=== PATIENT | male | born 1965 | race Caucasian/White ===

== ENCOUNTER 2017-05-05 16:09 | Inpatient (IN) | payer OTHER ==
[~2017-05-05] VITALS: Ht 172.7 cm; Wt 91.2 kg
[~2017-05-05 16:09] MED LIST: ADVAIR; ALBUTEROL; BACTRIM1 TAB; CETIRIZINE HYDR10 MG PO; COZ25 PO; FOS10 PO; HYDROCHLOROTHIA25 MG PO; LEVAQUIN750 MG PO; LOSARTAN POTASS25 M1 PO; MEDDP PO; METFORMIN HCL500 MG PO; MONTELUKAST SOD10 M1 PO; PRE20 PO; PRILOSEC20 MG PO; PROAIR HFA0.09 MG/A1 INH; SALBUTAMOL; SEREVENT D0.046 MG/1 IH; ZYR10 PO; [UNRECOGNIZED DRUG - OTHER]
[2017-05-06 03:10] LABS: BASOPHIL % 1.9 % (0-2); PLATELET COUNT 270 x10^3mcL (130-400); RED CELL DISTRIBUTION WIDTH 14.2 % (11.5-14.5)
[2017-05-06 03:13] LABS: CALCIUM 9.1 mg/dL (8.5-10.1); CHLORIDE SERUM 99 mmol/L (98-107); GFR1 > 60 mL/min; GLUCOSE SERUM 295 mg/dL (74-106); POTASSIUM SERUM 3.8 mmol/L (3.5-5.1); SODIUM SERUM 137 mmol/L (136-145)
[2017-05-06 03:18] LABS: ALBUMIN 3.9 g/dL (3.4-5.0); ALKALINE PHOSPHATASE 69 U/L (46-116); ALT/SGPT 32 U/L (16-63); AST/SGOT 4 U/L (15-37); BILIRUBIN TOTAL 0.54 mg/dL (0.20-1.00); TOTAL PROTEIN, SERUM 7.3 g/dL (6.4-8.2)
[2017-05-06] MEDS ORDERED: NITROGLYCERIN0.4 MG SL (03:38)
[2017-05-06] MEDS ORDERED: METFORMIN HCL1000 MG PO (03:39)
[2017-05-06] MEDS ORDERED: PREDNISONE20 MG PO (03:39)
[2017-05-06] MEDS ORDERED: TESSALON PERLE100 MG PO (03:40)
[2017-05-06] MEDS ORDERED: ATORVASTATIN CA40 M1 PO (03:40)
[2017-05-06] MEDS ORDERED: ASPIR LOW81 MG PO (03:40)
[2017-05-06] MEDS ORDERED: GLIPIZIDE10 M2 PO (03:41)
[2017-05-06] MEDS ORDERED: RANITIDINE HYD300 MG PO (03:42)
[2017-05-06 04:27] LABS: microscopic required? NO
[2017-05-06 04:49] LABS: UA SPECIFIC GRAVITY 1.025 (1.005-1.035); urine erythrocyte NEGATIVE (NEGATIVE)
[2017-05-06 04:58] LABS: AMPHETAMINE QUAL UR NONE DETECTED (NEG <=1000)
[2017-05-06 05:20] VITALS: BP 105/68
[2017-05-06 05:22] VITALS: Ht 172.7 cm; Wt 91.2 kg
[2017-05-06 06:12] VITALS: BP 105/68
[2017-05-06 07:10] LABS: T3 TOTAL 1.16 ng/mL
[2017-05-06 07:12] LABS: MAGNESIUM 2.1 mg/dL (1.8-2.4); PHOSPHOROUS 3.4 mg/dL (2.5-4.9)
[2017-05-06 07:18] LABS: FREE T4 1.05 ng/dL (0.76-1.46); FREE THYROXINE INDEX 2.7 ug/dL (1.4-4.5); T4(THYROXINE) 7.6 ug/dL (4.7-13.3)
[2017-05-06 07:22] LABS: CHOLESTEROL/HDL RATIO 4.5
[2017-05-06 09:45] VITALS: BP 101/54
[2017-05-06 12:47] VITALS: BP 123/62
[2017-05-06 17:38] VITALS: BP 108/69
[2017-05-06 20:52] VITALS: BP 117/62
[2017-05-07 05:46] VITALS: BP 120/75
[2017-05-07 07:11] LABS: BASOPHIL % 0.3 % (0-2); PLATELET COUNT 230 x10^3mcL (130-400); RED CELL DISTRIBUTION WIDTH 14.2 % (11.5-14.5)
[2017-05-07 08:39] LABS: CALCIUM 7.9 mg/dL (8.5-10.1); CARBON DIOXIDE 21.2 mmol/L (21-32); CHLORIDE SERUM 108 mmol/L (98-107); CREATININE SERUM 0.6 mg/dL (0.7-1.3); GFR1 > 60 mL/min; GLUCOSE SERUM 177 mg/dL (74-106); MAGNESIUM 1.9 mg/dL (1.8-2.4); PHOSPHOROUS 2.6 mg/dL (2.5-4.9); POTASSIUM SERUM 3.6 mmol/L (3.5-5.1); SODIUM SERUM 139 mmol/L (136-145)
[2017-05-07 09:19] VITALS: BP 95/56
[2017-05-07 12:27] VITALS: BP 108/63
[2017-05-07 16:43] VITALS: BP 116/75
[2017-05-07 19:40] VITALS: BP 107/54
[2017-05-07 22:16] VITALS: BP 110/55
[2017-05-08 05:45] VITALS: BP 132/71
[2017-05-08 07:05] LABS: BASOPHIL % 0.3 % (0-2); PLATELET COUNT 205 x10^3mcL (130-400); RED CELL DISTRIBUTION WIDTH 14.1 % (11.5-14.5)
[2017-05-08 07:59] LABS: CALCIUM 7.9 mg/dL (8.5-10.1); CARBON DIOXIDE 24.4 mmol/L (21-32); CHLORIDE SERUM 107 mmol/L (98-107); CREATININE SERUM 0.8 mg/dL (0.7-1.3); GFR1 > 60 mL/min; GLUCOSE SERUM 187 mg/dL (74-106); MAGNESIUM 1.9 mg/dL (1.8-2.4); POTASSIUM SERUM 3.5 mmol/L (3.5-5.1); SODIUM SERUM 140 mmol/L (136-145)
[2017-05-08 08:00] VITALS: BP 117/81
[2017-05-08] MEDS ORDERED: BACO TOP (12:20)
[2017-05-08] MEDS ORDERED: HIBICLENS118 ML TOP (12:21)
[2017-05-08 13:44] VITALS: BP 117/81
== END 2017-05-08 15:08 | disposition home or self-care (01) | DRG 191 ==
LOC: ED 16:09 → MU 05-06 02:41 → DU 05-06 02:41 → MU 05-07 07:46
PROVIDERS: Emergency Medicine; Student in an Organized Health Care Education/Training Program
DX: J44.1 Chronic obstructive pulmonary disease with (acute) exacerbation (principal); E24.2 Drug-induced Cushing's syndrome; T38.0X5A Adverse effect of glucocorticoids and synthetic analogues, initial encounter; M94.0 Chondrocostal junction syndrome [Tietze]; G47.30 Sleep apnea, unspecified; I10 Essential (primary) hypertension; E11.65 Type 2 diabetes mellitus with hyperglycemia; K76.0 Fatty (change of) liver, not elsewhere classified; M81.0 Age-related osteoporosis without current pathological fracture; E78.5 Hyperlipidemia, unspecified; E66.9 Obesity, unspecified; Z99.81 Dependence on supplemental oxygen; Z79.52 Long term (current) use of systemic steroids; Z79.84 Long term (current) use of oral hypoglycemic drugs; Y92.009 Unspecified place in unspecified non-institutional (private) residence as the place of occurrence of the external cause
CPT/HCPCS: 36600; 83880; 84439; 90658; 94150; J1956; J2930; J7030; J7512; J7620; J7626; Q0092; Q9967

== ENCOUNTER 2017-10-20 12:59 | Inpatient (IN) | payer OTHER, MEDICAID ==
[~2017-10-20] VITALS: Ht 172.7 cm; Wt 103.9 kg
[~2017-10-20 12:59] MED LIST changes: +ASPIR LOW81 MG PO; +ATORVASTATIN CA40 M1 PO; +BACO TOP; +GLIPIZIDE10 M2 PO; +HIBICLENS118 ML TOP; +METFORMIN HCL1000 MG PO; +NITROGLYCERIN0.4 MG SL; +PREDNISONE20 MG PO; +RANITIDINE HYD300 MG PO; +TESSALON PERLE100 MG PO
[2017-10-20 13:03] VITALS: Ht 172.7 cm; Wt 103.9 kg
[2017-10-20 14:03] LABS: microscopic required? NO
[2017-10-20 14:19] LABS: BASOPHIL % 0.4 % (0-2); PLATELET COUNT 250 x10^3mcL (130-400); RED CELL DISTRIBUTION WIDTH 14.2 % (11.5-14.5)
[2017-10-20 14:20] LABS: UA SPECIFIC GRAVITY <=1.005 (1.005-1.035); urine erythrocyte NEGATIVE (NEGATIVE)
[2017-10-20 14:54] LABS: ALBUMIN 3.5 g/dL (3.4-5.0); BILIRUBIN TOTAL 0.53 mg/dL (0.20-1.00); CREATININE SERUM 1.7 mg/dL (0.7-1.3); FREE T4 0.91 ng/dL (0.76-1.46); POTASSIUM SERUM 4.9 mmol/L (3.5-5.1); TOTAL PROTEIN, SERUM 7.2 g/dL (6.4-8.2)
[2017-10-20 14:56] LABS: CALCIUM 13.5 mg/dL (8.5-10.1)
[2017-10-20] MEDS ORDERED: ADV100/50 INH (15:56)
[2017-10-20] MEDS ORDERED: NOVOLOG100 U/ML SC (15:56)
[2017-10-20] MEDS ORDERED: LANTUS SOLOS100 U/M1 SQ (15:59)
[2017-10-20 16:24] LABS: AMPHETAMINE QUAL UR NONE DETECTED (See below)
[2017-10-20 16:36] LABS: FREE T4 0.91 ng/dL (0.76-1.46); FREE THYROXINE INDEX 2.3 ug/dL (1.4-4.5); T3 TOTAL 1.14 ng/mL; T4(THYROXINE) 6.9 ug/dL (4.7-13.3)
[2017-10-20 16:52] LABS: CHOLESTEROL/HDL RATIO 2.5; MAGNESIUM 1.4 mg/dL (1.8-2.4); PHOSPHOROUS 5.8 mg/dL (2.5-4.9)
[2017-10-20 17:23] VITALS: BP 130/89
[2017-10-20 17:38] VITALS: BP 163/96
[2017-10-20 20:54] VITALS: BP 154/98
[2017-10-21 06:01] VITALS: BP 114/71
[2017-10-21 07:00] LABS: BASOPHIL % 0.4 % (0-2); PLATELET COUNT 212 x10^3mcL (130-400); RED CELL DISTRIBUTION WIDTH 14.3 % (11.5-14.5)
[2017-10-21 07:08] LABS: CALCIUM 10.8 mg/dL (8.5-10.1); CARBON DIOXIDE 27.3 mmol/L (21-32); CHLORIDE SERUM 103 mmol/L (98-107); CREATININE SERUM 1.1 mg/dL (0.7-1.3); GFR1 > 60 mL/min; GLUCOSE SERUM 132 mg/dL (74-106); POTASSIUM SERUM 3.6 mmol/L (3.5-5.1); SODIUM SERUM 141 mmol/L (136-145)
[2017-10-21 13:20] VITALS: BP 136/87
[2017-10-21 20:00] VITALS: BP 125/83
[2017-10-21 21:42] VITALS: BP 125/83
[2017-10-22 06:10] VITALS: BP 145/88
[2017-10-22 06:22] LABS: BASOPHIL % 0.5 % (0-2); RED CELL DISTRIBUTION WIDTH 13.8 % (11.5-14.5)
[2017-10-22 06:39] LABS: PLATELET COUNT 74 x10^3mcL (130-400)
[2017-10-22 07:04] LABS: CALCIUM 9.6 mg/dL (8.5-10.1); CARBON DIOXIDE 23.7 mmol/L (21-32); CHLORIDE SERUM 101 mmol/L (98-107); CREATININE SERUM 1.1 mg/dL (0.7-1.3); GFR1 > 60 mL/min; GLUCOSE SERUM 266 mg/dL (74-106); MAGNESIUM 1.5 mg/dL (1.8-2.4); PHOSPHOROUS 3.8 mg/dL (2.5-4.9); POTASSIUM SERUM 4.5 mmol/L (3.5-5.1); SODIUM SERUM 138 mmol/L (136-145)
[2017-10-22 09:43] VITALS: BP 144/83
[2017-10-22 11:05] VITALS: BP 144/83
[2017-10-22] MEDS ORDERED: ZES5 PO (12:00)
[2017-10-22] MEDS ORDERED: MAG PO (12:01)
[2017-10-22] MEDS ORDERED: BACO TOP (12:02)
[2017-10-22] MEDS ORDERED: PREDNISONE10 MG PO (12:05)
[2017-10-22] MEDS ORDERED: LEVAQUIN750 MG PO (12:59)
[2017-10-22 13:43] VITALS: BP 143/86
== END 2017-10-22 17:53 | disposition home or self-care (01) | DRG 190 ==
LOC: ED 12:59 → DU 15:49
PROVIDERS: Emergency Medicine; Family Medicine
DX: J44.1 Chronic obstructive pulmonary disease with (acute) exacerbation (principal); N17.0 Acute kidney failure with tubular necrosis; J96.00 Acute respiratory failure, unspecified whether with hypoxia or hypercapnia; E87.1 Hypo-osmolality and hyponatremia; E87.2 Acidosis; E24.2 Drug-induced Cushing's syndrome; E11.65 Type 2 diabetes mellitus with hyperglycemia; M94.0 Chondrocostal junction syndrome [Tietze]; G47.33 Obstructive sleep apnea (adult) (pediatric); R00.0 Tachycardia, unspecified; E83.39 Other disorders of phosphorus metabolism; E83.42 Hypomagnesemia; E87.8 Other disorders of electrolyte and fluid balance, not elsewhere classified; Z79.4 Long term (current) use of insulin; Z68.34 Body mass index [BMI] 34.0-34.9, adult; Z87.891 Personal history of nicotine dependence; Z91.14 Patient's other noncompliance with medication regimen
CPT/HCPCS: 83880; 84439; 97535-GP; J1956; J2920; J3475; J7030; J7620; Q0092; Q9967

== ENCOUNTER 2018-06-29 00:32 | Inpatient (IN) | payer OTHER ==
[~2018-06-29] VITALS: Ht 172.7 cm; Wt 100.4 kg
[~2018-06-29 00:32] MED LIST changes: +ADV100/50 INH; +LANTUS SOLOS100 U/M1 SQ; +MAG PO; +NOVOLOG100 U/ML SC; +PREDNISONE10 MG PO; +ZES5 PO
[2018-06-29 00:36] VITALS: Ht 172.7 cm; Wt 100.4 kg
[2018-06-29 01:42] LABS: BASOPHIL % 1.2 % (0-2); PLATELET COUNT 272 x10^3mcL (130-400); RED CELL DISTRIBUTION WIDTH 14.4 % (11.5-14.5)
[2018-06-29 01:52] LABS: CALCIUM 10.3 mg/dL (8.5-10.1); CARBON DIOXIDE 26.7 mmol/L (21-32); CHLORIDE SERUM 98 mmol/L (98-107); CREATININE SERUM 1.2 mg/dL (0.7-1.3); GFR1 > 60 mL/min; GLUCOSE SERUM 308 mg/dL (74-106); POTASSIUM SERUM 4.3 mmol/L (3.5-5.1); SODIUM SERUM 136 mmol/L (136-145)
[2018-06-29 01:57] LABS: ALBUMIN 3.6 g/dL (3.4-5.0); ALKALINE PHOSPHATASE 65 U/L (46-116); ALT/SGPT 40 U/L (16-63); AST/SGOT 14 U/L (15-37); BILIRUBIN TOTAL 0.2 mg/dL (0.20-1.00); CHOLESTEROL 231 mg/dL (<200); HDL CHOLESTEROL 51 mg/dL (40-60); TOTAL PROTEIN, SERUM 7.2 g/dL (6.4-8.2)
[2018-06-29] MEDS ORDERED: ALBUTEROL SULFAT3 ML NEB (02:30)
[2018-06-29] MEDS ORDERED: ANORO ELLIPTA1 POW IH (02:30)
[2018-06-29] MEDS ORDERED: ARNUITY EL200 MCG/Ac IH (02:31)
[2018-06-29] MEDS ORDERED: HUMALOG MI100 UNIT/1 SQ (02:32)
[2018-06-29] MEDS ORDERED: LIPITOR80 MG PO (02:34)
[2018-06-29] MEDS ORDERED: LANTUS SOLOS100 U/M1 SQ (02:34)
[2018-06-29] MEDS ORDERED: LOSARTAN POTASS50 M1 PO (02:36)
[2018-06-29] MEDS ORDERED: MECLIZINE HYDRO25 M1 PO (02:37)
[2018-06-29] MEDS ORDERED: SINGULAIR10 MG PO (02:38)
[2018-06-29] MEDS ORDERED: VICTOZA6 MG/M1 SC (02:39)
[2018-06-29] MEDS ORDERED: VENTOLIN H0.09 MG/A1 (02:39)
[2018-06-29 04:24] VITALS: BP 141/77
[2018-06-29 06:32] LABS: microscopic required? NO
[2018-06-29 08:01] VITALS: BP 132/79
[2018-06-29 08:34] LABS: UA SPECIFIC GRAVITY 1.025 (1.005-1.035); urine erythrocyte NEGATIVE (NEGATIVE)
[2018-06-29 12:21] VITALS: BP 122/73
[2018-06-29 16:11] VITALS: BP 122/79
[2018-06-29 19:30] VITALS: BP 99/75
[2018-06-30 05:36] VITALS: BP 133/85
[2018-06-30 06:29] LABS: BASOPHIL % 0.4 % (0-2); PLATELET COUNT 258 x10^3mcL (130-400)
[2018-06-30 06:47] LABS: RED CELL DISTRIBUTION WIDTH 14.6 % (11.5-14.5)
[2018-06-30 07:25] LABS: CALCIUM 9.4 mg/dL (8.5-10.1); CARBON DIOXIDE 23.8 mmol/L (21-32); CHLORIDE SERUM 99 mmol/L (98-107); GFR1 > 60 mL/min; GLUCOSE SERUM 401 mg/dL (74-106); POTASSIUM SERUM 4.4 mmol/L (3.5-5.1); SODIUM SERUM 134 mmol/L (136-145)
[2018-06-30 07:43] VITALS: BP 131/82
[2018-06-30 12:24] VITALS: BP 131/76
[2018-06-30 16:06] VITALS: BP 134/78
[2018-06-30 19:05] VITALS: BP 131/69
[2018-07-01 05:34] VITALS: BP 130/73
[2018-07-01 06:19] LABS: CALCIUM 8.2 mg/dL (8.5-10.1); CARBON DIOXIDE 26.9 mmol/L (21-32); CHLORIDE SERUM 105 mmol/L (98-107); CREATININE SERUM 0.9 mg/dL (0.7-1.3); GFR1 > 60 mL/min; GLUCOSE SERUM 287 mg/dL (74-106); SODIUM SERUM 141 mmol/L (136-145)
[2018-07-01 07:11] VITALS: BP 136/84
[2018-07-01 07:34] LABS: PLATELET COUNT 264 x10^3mcL (130-400); RED CELL DISTRIBUTION WIDTH 13.7 % (11.5-14.5)
[2018-07-01 12:24] VITALS: BP 148/80
[2018-07-01 13:09] VITALS: BP 136/84
[2018-07-01 13:25] VITALS: BP 136/84
[2018-07-01 13:31] LABS: BAND NEUTROPHIL 2 % (0-10); MONOCYTE 5 % (0-7); SEGMENTED NEUTROPHILS 87 % (37-75)
[2018-07-01 13:32] LABS: PLATELET MORPHOLOGY PLT CLUMPS SEEN; rbc morphology (normal/abnorm) NORMAL (NORMAL)
== END 2018-07-01 14:15 | disposition home or self-care (01) | DRG 871 ==
LOC: ED 00:32 → DU 02:56
PROVIDERS: Emergency Medicine; ADMIT Internal Medicine
DX: A41.9 Sepsis, unspecified organism (principal); J18.9 Pneumonia, unspecified organism; J18.1 Lobar pneumonia, unspecified organism; J96.21 Acute and chronic respiratory failure with hypoxia; E24.9 Cushing's syndrome, unspecified; E87.2 Acidosis; E11.65 Type 2 diabetes mellitus with hyperglycemia; J45.909 Unspecified asthma, uncomplicated; J44.9 Chronic obstructive pulmonary disease, unspecified; G47.33 Obstructive sleep apnea (adult) (pediatric); M81.0 Age-related osteoporosis without current pathological fracture
CPT/HCPCS: 36600; 82962; 83880; 87804; J0456; J0696; J1644; J1815; J1956; J2270; J2920; J2930; J7030; J7050; J7620; J7626; Q0092

== ENCOUNTER 2018-10-27 21:55 | Inpatient (IN) | payer OTHER ==
[~2018-10-27] VITALS: Ht 172.7 cm; Wt 102.5 kg
[~2018-10-27 21:55] MED LIST changes: +ALBUTEROL SULFAT3 ML NEB; +ANORO ELLIPTA1 POW IH; +ARNUITY EL200 MCG/Ac IH; +HUMALOG MI100 UNIT/1 SQ; +LIPITOR80 MG PO; +LOSARTAN POTASS50 M1 PO; +MECLIZINE HYDRO25 M1 PO; +SINGULAIR10 MG PO; +VENTOLIN H0.09 MG/A1; +VICTOZA6 MG/M1 SC
[2018-10-27 22:17] VITALS: Ht 172.7 cm; Wt 102.5 kg
[2018-10-27 22:53] LABS: BASOPHIL % 0.7 % (0-2); PLATELET COUNT 257 x10^3mcL (130-400)
[2018-10-27 23:19] LABS: ALBUMIN 3.6 g/dL (3.4-5.0); ALKALINE PHOSPHATASE 76 U/L (46-116); ALT/SGPT 33 U/L (16-63); AST/SGOT 8 U/L (15-37); BILIRUBIN TOTAL 0.45 mg/dL (0.20-1.00); CALCIUM 10.5 mg/dL (8.5-10.1); CARBON DIOXIDE 24.9 mmol/L (21-32); CHLORIDE SERUM 93 mmol/L (98-107); CREATININE SERUM 2.3 mg/dL (0.7-1.3); GFR1 32 mL/min; HDL CHOLESTEROL 51 mg/dL (40-60); PHOSPHOROUS 3.1 mg/dL (2.5-4.9); POTASSIUM SERUM 5.4 mmol/L (3.5-5.1); SODIUM SERUM 128 mmol/L (136-145); URIC ACID 5.8 mg/dL (3.5-7.2)
[2018-10-27 23:20] LABS: CHOLESTEROL 226 mg/dL (<200)
[2018-10-27 23:21] LABS: GLUCOSE SERUM 479 mg/dL (74-106)
[2018-10-28 01:14] LABS: microscopic required? NO
[2018-10-28 01:36] LABS: UA SPECIFIC GRAVITY <=1.005 (1.005-1.035); urine erythrocyte NEGATIVE (NEGATIVE)
[2018-10-28 01:59] LABS: CHOLESTEROL/HDL RATIO 4.4
[2018-10-28 04:18] VITALS: BP 141/89
[2018-10-28 04:49] VITALS: BP 141/89
[2018-10-28 09:00] VITALS: BP 149/85
[2018-10-28 13:42] VITALS: BP 146/75
[2018-10-28 17:30] VITALS: BP 133/79
[2018-10-28 21:07] VITALS: BP 127/67
[2018-10-29 05:43] VITALS: BP 115/65
[2018-10-29 06:38] LABS: PLATELET COUNT 221 x10^3mcL (130-400); RED CELL DISTRIBUTION WIDTH 14.5 % (11.5-14.5)
[2018-10-29 06:45] LABS: CALCIUM 8.6 mg/dL (8.5-10.1); CARBON DIOXIDE 28.1 mmol/L (21-32); CREATININE SERUM 1.7 mg/dL (0.7-1.3); POTASSIUM SERUM 3.6 mmol/L (3.5-5.1)
[2018-10-29 12:48] VITALS: BP 125/74
[2018-10-29 14:37] LABS: BAND NEUTROPHIL 0 % (0-10); BASOPHIL 0 % (0-2); MONOCYTE 4 % (0-7); SEGMENTED NEUTROPHILS 93 % (37-75)
[2018-10-29 14:39] LABS: PLATELET MORPHOLOGY PLATELETS INCREASED; rbc morphology (normal/abnorm) ABNORMAL (NORMAL)
[2018-10-29 17:34] VITALS: BP 137/81
[2018-10-29 19:30] VITALS: BP 139/70
[2018-10-30 05:37] VITALS: BP 133/70
[2018-10-30 06:40] LABS: CARBON DIOXIDE 23.6 mmol/L (21-32); CHLORIDE SERUM 101 mmol/L (98-107); CREATININE SERUM 1.3 mg/dL (0.7-1.3); GFR1 > 60 mL/min; GLUCOSE SERUM 253 mg/dL (74-106); POTASSIUM SERUM 4.4 mmol/L (3.5-5.1); SODIUM SERUM 136 mmol/L (136-145)
[2018-10-30 08:59] LABS: PLATELET COUNT 212 x10^3mcL (130-400); RED CELL DISTRIBUTION WIDTH 14.8 % (11.5-14.5)
[2018-10-30 09:01] LABS: ATYPICAL LYMPH 0 %; BAND NEUTROPHIL 0 % (0-10); MONOCYTE 3 % (0-7); SEGMENTED NEUTROPHILS 89 % (37-75)
[2018-10-30 09:02] LABS: BASOPHIL 0 % (0-2); rbc morphology (normal/abnorm) ABNORMAL (NORMAL)
[2018-10-30 10:42] VITALS: BP 134/71
== END 2018-10-30 11:14 | disposition home or self-care (01) | DRG 189 ==
LOC: ED 21:55 → DU 10-28 00:57
PROVIDERS: Emergency Medicine; ADMIT Internal Medicine
DX: J96.21 Acute and chronic respiratory failure with hypoxia (principal); J44.1 Chronic obstructive pulmonary disease with (acute) exacerbation; J44.0 Chronic obstructive pulmonary disease with (acute) lower respiratory infection; J20.9 Acute bronchitis, unspecified; E11.65 Type 2 diabetes mellitus with hyperglycemia; E11.22 Type 2 diabetes mellitus with diabetic chronic kidney disease; N18.9 Chronic kidney disease, unspecified; M81.0 Age-related osteoporosis without current pathological fracture; Z68.33 Body mass index [BMI] 33.0-33.9, adult; Z79.52 Long term (current) use of systemic steroids; Z79.4 Long term (current) use of insulin; Z79.84 Long term (current) use of oral hypoglycemic drugs; Z91.14 Patient's other noncompliance with medication regimen
CPT/HCPCS: 82962; 94150; G0378; J0696; J1644; J1815; J1956; J2270; J2920; J7030; J7512; J7620; J7626; J8597; Q0092

== ENCOUNTER 2019-05-09 22:01 | Inpatient (IN) | payer OTHER ==
[~2019-05-09] VITALS: Ht 172.7 cm; Wt 100.2 kg
[2019-05-09 22:08] VITALS: Ht 172.7 cm; Wt 100.2 kg
[2019-05-09 23:49] LABS: BASOPHIL % 1.2 % (0-2); PLATELET COUNT 259 x10^3mcL (130-400); RED CELL DISTRIBUTION WIDTH 14.2 % (11.5-14.5)
[2019-05-10 00:12] LABS: CK-MB 9.2 ng/mL (0-3.6)
[2019-05-10 00:23] LABS: ALKALINE PHOSPHATASE 69 U/L (46-116); ALT/SGPT 36 U/L (16-63); AST/SGOT 15 U/L (15-37); BILIRUBIN TOTAL 0.4 mg/dL (0.20-1.00); C REACTIVE PROTEIN 1.2 mg/dL (<=0.9); CALCIUM 9.4 mg/dL (8.5-10.1); CARBON DIOXIDE 28.8 mmol/L (21-32); CHLORIDE SERUM 94 mmol/L (98-107); CREATININE SERUM 2.1 mg/dL (0.7-1.3); GFR1 35 mL/min; POTASSIUM SERUM 4.4 mmol/L (3.5-5.1); SODIUM SERUM 129 mmol/L (136-145)
[2019-05-10 00:26] LABS: ALBUMIN 3.3 g/dL (3.4-5.0)
[2019-05-10 00:28] LABS: ERYTHROCYTE SED RATE 31 mm/hr (0-20)
[2019-05-10 00:31] LABS: GLUCOSE SERUM 491 mg/dL (74-106)
[2019-05-10 00:35] LABS: T3 TOTAL 0.99 ng/mL
[2019-05-10 00:53] LABS: FREE T4 0.81 ng/dL (0.76-1.46); FREE THYROXINE INDEX 2.2 ug/dL (1.4-4.5); T4(THYROXINE) 6.2 ug/dL (4.7-13.3)
[2019-05-10 03:39] VITALS: BP 155/51
[2019-05-10 03:57] VITALS: BP 155/51
[2019-05-10 08:45] VITALS: BP 112/64
[2019-05-10 13:00] VITALS: BP 117/71
[2019-05-10 17:16] VITALS: BP 139/79
[2019-05-10 20:12] VITALS: BP 137/79
[2019-05-11 05:08] VITALS: BP 133/77
[2019-05-11 09:00] VITALS: BP 128/63
[2019-05-11 12:27] VITALS: BP 140/70
[2019-05-11 13:23] LABS: PLATELET COUNT 243 x10^3mcL (130-400)
[2019-05-11 13:31] LABS: BASOPHIL % 0 % (0-2)
[2019-05-11 13:33] LABS: CALCIUM 8.9 mg/dL (8.5-10.1); CARBON DIOXIDE 23.9 mmol/L (21-32); CREATININE SERUM 1.6 mg/dL (0.7-1.3); POTASSIUM SERUM 3.7 mmol/L (3.5-5.1)
[2019-05-11 17:26] VITALS: BP 152/87
[2019-05-11 20:33] VITALS: BP 143/99
[2019-05-12 04:54] VITALS: BP 140/95
[2019-05-12 06:11] LABS: PLATELET COUNT 234 x10^3mcL (130-400)
[2019-05-12 06:21] LABS: CALCIUM 8.4 mg/dL (8.5-10.1); CARBON DIOXIDE 25.2 mmol/L (21-32); CHLORIDE SERUM 101 mmol/L (98-107); CREATININE SERUM 1.2 mg/dL (0.7-1.3); GFR1 > 60 mL/min; GLUCOSE SERUM 263 mg/dL (74-106); POTASSIUM SERUM 4.4 mmol/L (3.5-5.1); SODIUM SERUM 135 mmol/L (136-145)
[2019-05-12 06:33] LABS: BASOPHIL % 0 % (0-2)
[2019-05-12 09:00] VITALS: BP 140/76
[2019-05-12 13:08] VITALS: BP 157/93
[2019-05-12 14:49] VITALS: BP 157/93
== END 2019-05-12 15:29 | disposition home or self-care (01) | DRG 189 ==
LOC: ED 22:01 → DU 05-10 00:46
PROVIDERS: Specialist; ADMIT Internal Medicine
DX: J96.01 Acute respiratory failure with hypoxia (principal); J44.1 Chronic obstructive pulmonary disease with (acute) exacerbation; E24.9 Cushing's syndrome, unspecified; N17.9 Acute kidney failure, unspecified; E87.2 Acidosis; J44.0 Chronic obstructive pulmonary disease with (acute) lower respiratory infection; E11.22 Type 2 diabetes mellitus with diabetic chronic kidney disease; I12.9 Hypertensive chronic kidney disease with stage 1 through stage 4 chronic kidney disease, or unspecified chronic kidney disease; N18.9 Chronic kidney disease, unspecified; E11.65 Type 2 diabetes mellitus with hyperglycemia; Z99.81 Dependence on supplemental oxygen; Z79.84 Long term (current) use of oral hypoglycemic drugs; J20.9 Acute bronchitis, unspecified; Z87.891 Personal history of nicotine dependence
CPT/HCPCS: 36600; 82962; 84439; 87804; 90658; 90732; G0378; J1644; J1815; J1956; J2270; J2920; J2930; J7030; J7613; J7620; J7626; J7644; J8597; Q0092